=== PATIENT | male | born 1980 | race African-American/Black ===

== ENCOUNTER 2023-06-29 16:39 | Inpatient (IN) | payer OTHER ==
[~2023-06-29] VITALS: Ht 175.3 cm; Wt 87.3 kg
[2023-06-29 21:28] LABS: BASOPHILS % (AUTO) 0.3 % (0.0-2.0); EOSINOPHILS % (AUTO) 0.4 % (1.0-6.0); HEMOGLOBIN 13.8 g/dL (13.5-17.5); LYMPHOCYTES # (AUTO) 2.1 K/uL (1.0-4.8); LYMPHOCYTES % (AUTO) 43.8 % (22.0-44.0); MEAN CORPUSCULAR HEMOGLOBIN 30.7 pg (26.0-34.0); MEAN CORPUSCULAR HGB CONC 32.9 G/dL (31.0-37.0); MEAN CORPUSCULAR VOLUME 94 fL (80-100); MONOCYTES # (AUTO) 0.5 K/uL (0.1-1.0); MONOCYTES % (AUTO) 10.9 % (2.0-9.0); NEUTROPHILS # (AUTO) 2.2 K/uL (1.8-7.7); NEUTROPHILS % (AUTO) 44.6 % (40.0-70.0); PLATELET COUNT (AUTO) 193 K/uL (150-450); RED CELL DISTRIBUTION WIDTH 13.7 % (11.5-14.5); WHITE BLOOD COUNT (AUTO) 4.9 K/uL (4.5-11.0)
[2023-06-29 21:30] LABS: ANION GAP 8 mmol/L (8-16); CALCIUM, TOTAL 9.7 mg/dL (8.8-10.5); CARBON DIOXIDE 30 mmol/L (22-29); CHLORIDE 103 mmol/L (98-107); CREATININE 0.94 mg/dL (0.60-1.30); GLOMERULAR FILTR. RATE CALC > 60 mL/min (>60); GLUCOSE,RANDOM 83 mg/dL (70-110); POTASSIUM 3.9 mmol/L (3.5-5.1); SODIUM SERUM 141 mmol/L (136-145); UREA NITROGEN, BLOOD 10 mg/dL (7-18)
[2023-06-29] MEDS ORDERED: SODIUM CHLORIDE 0.9% 1,000 ML IV ONE ×2 (21:30→23:30)
[2023-06-29 21:36] LABS: ALANINE AMINOTRANSFERASE 71 U/L (12-78); ALBUMIN 3.8 g/dL (3.4-5.0); ALKALINE PHOSPHATASE 80 U/L (46-116); ASPARTATE AMINOTRANSFERASE 34 U/L (15-37); BILIRUBIN,TOTAL 0.5 mg/dL (0.1-1.0); TOTAL PROTEIN, SERUM 7.5 g/dL (6.4-8.2)
[2023-06-29] MEDS ORDERED: IOHEXOL 350 MG/ML 100 ML VIAL ONE (22:52)
[2023-06-29] MEDS ORDERED: SODIUM CHLORIDE 0.9% 100 ML ONE (22:52)
[2023-06-29 23:18] LABS: APPEARANCE,URINE CLEAR (CLEAR); BILIRUBIN,URINE NEGATIVE (NEGATIVE); COLOR,URINE LIGHT YELLOW (YELLOW); GLUCOSE, URINE (UA) NEGATIVE (NEGATIVE); LEUKOCYTE ESTERASE ,URINE NEGATIVE (NEGATIVE); NITRATE,URINE NEGATIVE (NEGATIVE); OCCULT BLOOD,URINE NEGATIVE (NEGATIVE); PH,URINE 7.5 (5.0-8.0); PROTEIN,URINE TRACE mg/dL (NEGATIVE); SPECIFIC GRAVITIY, URINE 1.021 (1.003-1.030); UROBILINOGEN,URINE <=1.0 mg/dL (<=1.0)
[2023-06-29] MEDS ORDERED: ONDANSETRON HCL 4 MG/2 ML VIAL IVP PRN (23:30)
[2023-06-30] MEDS ORDERED: LEVOFLOXACIN 500 MG/D5% WATER 100 ML IV ONE (00:30)
[2023-06-30 02:53] LABS: COVID AG,FIA SOURCE NASAL SWAB
[2023-06-30 03:15] VITALS: BP 124/78; PULSE 71; RESP 18; TEMP 98.2
[2023-06-30 03:15] LABS: SARS-COV2 (COVID) ANTIGEN,FIA Negative (Negative)
[2023-06-30] MEDS ORDERED: INFLUENZA VIRUS VACCINE QVS 2023-24 (6MO+)/PF 60 MCG/0.5 ML SYRINGE IM. ONE (05:45)
[2023-06-30] MEDS ORDERED: PNEUMOCOCCAL VACCINE POLYVALENT 0.5 ML SYRINGE [PPSV23] IM. ONE (05:45)
[2023-06-30 07:02] LABS: BASOPHILS % (AUTO) 0.6 % (0.0-2.0); EOSINOPHILS % (AUTO) 1.2 % (1.0-6.0); HEMATOCRIT 38.9 % (41-53); LYMPHOCYTES # (AUTO) 1.8 K/uL (1.0-4.8); LYMPHOCYTES % (AUTO) 42.7 % (22.0-44.0); MEAN CORPUSCULAR HEMOGLOBIN 31.5 pg (26.0-34.0); MEAN CORPUSCULAR HGB CONC 33.4 G/dL (31.0-37.0); MEAN CORPUSCULAR VOLUME 94 fL (80-100); MONOCYTES # (AUTO) 0.6 K/uL (0.1-1.0); MONOCYTES % (AUTO) 15.6 % (2.0-9.0); NEUTROPHILS # (AUTO) 1.6 K/uL (1.8-7.7); NEUTROPHILS % (AUTO) 39.9 % (40.0-70.0); PLATELET COUNT (AUTO) 179 K/uL (150-450); RED BLOOD CELL COUNT(AUTO) 4.14 MIL/uL (4.50-5.90); RED CELL DISTRIBUTION WIDTH 13.6 % (11.5-14.5); WHITE BLOOD COUNT (AUTO) 4.1 K/uL (4.5-11.0)
[2023-06-30 07:37] LABS: ANION GAP 8 mmol/L (8-16); CALCIUM, TOTAL 9.3 mg/dL (8.8-10.5); CARBON DIOXIDE 28 mmol/L (22-29); CHLORIDE 104 mmol/L (98-107); CREATININE 0.94 mg/dL (0.60-1.30); GLOMERULAR FILTR. RATE CALC > 60 mL/min (>60); GLUCOSE,RANDOM 84 mg/dL (70-110); POTASSIUM 4.1 mmol/L (3.5-5.1); SODIUM SERUM 140 mmol/L (136-145); UREA NITROGEN, BLOOD 8 mg/dL (7-18)
[2023-06-30] MEDS: DOCUSATE SODIUM 100 MG CAPSULE PO SCH ×3 (09:12→20:25)
[2023-06-30 11:28] VITALS: BP 113/74; PULSE 89; RESP 19; TEMP 98.2
[2023-06-30 11:46] LABS: BASOPHILS % (AUTO) 3.3 % (0.0-2.0); EOSINOPHILS % (AUTO) 1.2 % (1.0-6.0); HEMATOCRIT 40.7 % (41-53); HEMOGLOBIN 13.4 g/dL (13.5-17.5); LYMPHOCYTES # (AUTO) 1.1 K/uL (1.0-4.8); LYMPHOCYTES % (AUTO) 34.1 % (22.0-44.0); MEAN CORPUSCULAR HEMOGLOBIN 30.9 pg (26.0-34.0); MEAN CORPUSCULAR HGB CONC 32.9 G/dL (31.0-37.0); MEAN CORPUSCULAR VOLUME 94 fL (80-100); MONOCYTES # (AUTO) 0.6 K/uL (0.1-1.0); MONOCYTES % (AUTO) 17.6 % (2.0-9.0); NEUTROPHILS # (AUTO) 1.4 K/uL (1.8-7.7); NEUTROPHILS % (AUTO) 43.8 % (40.0-70.0); PLATELET COUNT (AUTO) 193 K/uL (150-450); RED BLOOD CELL COUNT(AUTO) 4.33 MIL/uL (4.50-5.90); RED CELL DISTRIBUTION WIDTH 13.4 % (11.5-14.5); WHITE BLOOD COUNT (AUTO) 3.2 K/uL (4.5-11.0)
[2023-06-30 20:09] VITALS: BP 118/60; PULSE 64; RESP 18; TEMP 98.1
[2023-07-01 03:50] VITALS: BP 119/65; PULSE 74; RESP 18; TEMP 97.3
[2023-07-01] MEDS: DOCUSATE SODIUM 100 MG CAPSULE PO SCH ×2 (09:00→20:13)
[2023-07-01 10:23] VITALS: BP 109/61; PULSE 83; RESP 18; TEMP 98.3
[2023-07-01] MEDS ORDERED: MEBROFENIN TC99M/MCL ISOTOPE 1 EA INJ INJ ONE (14:15)
[2023-07-01] MEDS ORDERED: SODIUM CHLORIDE 0.9% 500 ML IV ONE (14:41)
[2023-07-01] MEDS: LEVOFLOXACIN 250 MG/D5% WATER 50 ML IV SCH (14:51)
[2023-07-01] MEDS: MetroNIDAZOLE 500 MG TABLET PO SCH ×2 (16:24→23:29)
[2023-07-01 20:38] VITALS: BP 107/55; PULSE 82; RESP 18; TEMP 98.9
[2023-07-01] MEDS ORDERED: DEXTROSE 5%-0.45% SODIUM CHL 1,000 ML IV PRN (23:55)
[2023-07-02 05:20] VITALS: BP 94/59; PULSE 75; RESP 18; TEMP 97.9
[2023-07-02 07:54] VITALS: BP 113/67; PULSE 70; RESP 18; TEMP 98.2
[2023-07-02] MEDS: MetroNIDAZOLE 500 MG TABLET PO SCH ×3 (08:00→23:20)
[2023-07-02] MEDS: DOCUSATE SODIUM 100 MG CAPSULE PO SCH ×2 (08:55→20:09)
[2023-07-02] MEDS: LEVOFLOXACIN 250 MG/D5% WATER 50 ML IV SCH (13:11)
[2023-07-02 15:48] VITALS: BP 119/67; PULSE 75; RESP 20; TEMP 98.4
[2023-07-02 19:31] VITALS: BP 112/63; PULSE 77; RESP 18; TEMP 97.7
[2023-07-02] MEDS: ACETAMINOPHEN 325 MG TABLET PO PRN (20:42)
[2023-07-02] MEDS ORDERED: ACETAMINOPHEN 650 MG/20.3 ML SOLUTION UDCUP PO PRN (21:00)
[2023-07-03] MEDS ORDERED: LIDOCAINE/PF 2% 5 ML SYRINGE IVP ONE (01:56)
[2023-07-03] MEDS ORDERED: PROPOFOL 1% 20 ML VIAL IVP ONE (01:56)
[2023-07-03 04:48] VITALS: BP 112/62; PULSE 67; RESP 18; TEMP 97.9
[2023-07-03] MEDS: DOCUSATE SODIUM 100 MG CAPSULE PO SCH (08:08)
[2023-07-03] MEDS: MetroNIDAZOLE 500 MG TABLET PO SCH (08:08)
[2023-07-03] MEDS: ACETAMINOPHEN 325 MG TABLET PO PRN (08:09)
[2023-07-03 09:22] VITALS: BP 125/69; PULSE 85; RESP 18; TEMP 97.9
[2023-07-03] MEDS: LEVOFLOXACIN 250 MG/D5% WATER 50 ML IV SCH (12:00)
== END 2023-07-03 13:00 | DRG 392 ==
LOC: EMS 16:40 → 6S 06-30 01:51
PROVIDERS: ADMIT Internal Medicine; ATTEND Internal Medicine
PROC: 0DB78ZX Excision of Stomach, Pylorus, Via Natural or Artificial Opening Endoscopic, Diagnostic (ICD-10-PCS; 2023-07-02)
PROC: 0DB68ZX Excision of Stomach, Via Natural or Artificial Opening Endoscopic, Diagnostic (ICD-10-PCS; principal; 2023-07-02 14:00)
DX: K52.9 Noninfective gastroenteritis and colitis, unspecified (principal); K92.1 Melena; D64.9 Anemia, unspecified; K44.9 Diaphragmatic hernia without obstruction or gangrene; Z20.822 Contact with and (suspected) exposure to COVID-19; K80.20 Calculus of gallbladder without cholecystitis without obstruction; Z83.3 Family history of diabetes mellitus; Z87.19 Personal history of other diseases of the digestive system; K29.70 Gastritis, unspecified, without bleeding
CPT/HCPCS: 74177; 78226; 80048; 80053; 81003; 82271; 83690; 83735; 85025; 88305; 88312; 88313; 93005; 99285; A9537; J1956; J2704; J3490; J7040; J7050; Q9967